=== PATIENT | female | born 2000 | race Caucasian/White ===

== ENCOUNTER 2020-03-29 21:36 | Inpatient (IN) | payer SELFPAY ==
[2020-03-29 21:38] VITALS: BP 113/59; PULSE 71; RESP 14; TEMP 36.8; O2SAT 97; BMI 21.7
[2020-03-29 21:46] VITALS: BP 113/59; PULSE 64; RESP 16; O2SAT 99
[2020-03-29 21:53] VITALS: BP 121/58; PULSE 51; RESP 17; O2SAT 98
--- NOTE | 2020-03-29 21:58 | W.ED.PSYCH ---
HPI - Psych General: Chief Complaint: Psychiatric Symptoms Stated Complaint: SI Time Seen by Provider: 03/29/20 21:38 History of Present Illness: HPI Narrative: 19-year-old female comes in as a direct admit from [facility]. She states that she drank some moonshine last night and took several trazodone. She has been having suicidal thoughts. She denies any recent illness including fevers, shortness of breath, cough, vomiting or diarrhea. MD complaint: suicidal ideation and feels depressed Onset (ago): hour(s) Duration: constant History of same: Yes Relieving factors: none Exacerbating factors: none Context: recent alcohol abuse Associated symptoms: Reports no associated symptoms Review of Systems Const: Denies: fever(s) or chills Eyes: Denies: change in vision Card: Denies: chest pain or palpitations Resp: Denies: dyspnea or wheezing GI: Denies: abdominal pain, nausea or vomiting : Denies: dysuria or hematuria Musc: Denies: joint warmth Skin/Breast: Denies: rash Neuro: Denies: headache(s), dizziness or vertigo Psych: Denies: anxiety [facility] ED Female Reproductive History: Date of last menstrual period: 03/25/20 Physical Exam Const: GENERAL APPEARANCE: well kempt and well developed ORIENTATION/CONSCIOUSNESS: Yes oriented to person, Yes oriented to place and Yes oriented to time HENMT: COMMON NORMALS: external ears normal and Normal external nose present FACE & SINUS: normal facial exam NOSE: Normal external nose present and No nasal discharge present EXTERNAL EAR: Yes external ears normal Eye: COMMON NORMALS: Equal, round and reactive pupils present, EOMs intact bilaterally and conjunctivae normal EYELID: eyelids normal CONJUNCTIVA: Yes conjunctivae normal PUPIL: Yes Equal, round and reactive pupils present Neck/C-Spine: GENERAL: No tracheal deviation Chest: COMMONS NORMALS: normal inspection of the chest CHEST: No tenderness Resp: COMMON NORMALS: clear to auscultation bilaterally EFFORT & INSPECTION: No tachypneic, No respiratory distress, No retractions, No uses accessory muscles and No tracheal deviation AUSCULTATION: clear to auscultation bilaterally, no rhonchi, no wheezes and lung sounds not diminished Cardio: COMMON NORMALS: regular rate and regular rhythm RATE: regular rate RHYTHM: regular rhythm HEART SOUNDS: no murmurs PERIPHERAL PULSES: radial pulses present GI: INSPECTION: No abdominal distension AUSCULTATION: No Hyperactive bowel sounds present and No Hypoactive bowel sounds present PALPATION: No Guarding due to palpation present (GI) and No Rigid due to palpation PERCUSSION: no dullness to percussion and no tympanic to percussion Neuro: SENSORIUM/ORIENTATION: Yes oriented to person, Yes oriented to place and Yes oriented to time Psych: COMMON NORMALS: Normal thought process present and speech normal APPEARANCE: Yes well kempt ACTIVITY/MOTOR BEHAVIOR: Yes appropriate eye contact and Yes psychomotor slowing SPEECH: Yes normal speech MOOD & AFFECT: Yes depressed mood THOUGHT PROCESS: Normal thought process present ATTENTION/CONCENTRATION: Yes attention grossly intact Skin: COMMON NORMALS: no rashes or lesions noted GENERAL SKIN EXAM: no rashes or lesions noted MDM - Psych MDM Narrative: Medical decision making narrative: She is cleared medically for NPU admission. Discharge Plan Discharge Admit Provider: Joao Haley Discharge Date/Time: 03/29/20 22:00 Coding Level of Care Code ED Facility Environmental Technician for Chg Fwd Exam Comprehensive
[2020-03-29 22:31] VITALS: BP 98/52; PULSE 72; RESP 19; TEMP 37; O2SAT 96
[2020-03-29] MEDS: hyDROXYzine 25 mg Capsule 50 MG PO (22:52)
[2020-03-30 06:00] VITALS: BP 97/54; PULSE 52; RESP 16; TEMP 36.8; O2SAT 98
[2020-03-30 14:00] VITALS: BP 89/50; PULSE 75; RESP 18; TEMP 37; O2SAT 99
[2020-03-30] MEDS: sertraline 50 mg Tablet PO (15:37)
[2020-03-30] MEDS: CLONazepam 0.5 mg Tablet PO (15:37)
--- NOTE | 2020-03-30 15:37 | PC.NURSE ---
PRN KLONOPIN KLONOPIN 0.5MG PO PER PATIENT C/O ANXIETY. WILL CONTINUE TO MONITOR FOR MEDICATION EFFECTIVENESS.
--- NOTE | 2020-03-30 16:40 | PC.NURSE ---
PRN KLONOPIN FOLLOW UP MEDICATION EFFECTIVE. NO FURTHER C/O ANXIETY.
[2020-03-30 20:06] VITALS: BP 100/65; PULSE 93; RESP 15; TEMP 36.5; O2SAT 98
[2020-03-30] MEDS: prazosin 1 mg Capsule PO (21:05)
[2020-03-31 06:00] VITALS: BP 97/64; PULSE 76; RESP 15; TEMP 37.1; O2SAT 98
[2020-03-31] MEDS: sertraline 50 mg Tablet PO (08:48)
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
[2020-03-31] MEDS: CLONazepam 0.5 mg Tablet PO (12:07)
--- NOTE | 2020-03-31 12:07 | PC.NURSE ---
PRN KLONOPIN KLONOPIN 0.5 MG PO PER PATIENT C/O ANXIETY. WILL CONTINUE TO MONITOR FOR MEDICATION EFFECTIVENESS.
--- NOTE | 2020-03-31 13:00 | PC.NURSE ---
PRN KLONOPIN FOLLOW UP MEDICATION EFFECTIVE. NO FURTHER C/O ANXIETY.
[2020-03-31 14:21] VITALS: BP 97/64; PULSE 76; RESP 15; TEMP 37.1; O2SAT 98
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
== END 2020-03-31 17:57 | disposition home or self-care (01) | DRG 882 ==
LOC: ER 21:49 → NP 21:50
PROVIDERS: Admitting Provider Psychiatry & Neurology Psychiatry; Visit Provider Psychiatry & Neurology Psychiatry
DX: F43.25 Adjustment disorder with mixed disturbance of emotions and conduct (principal); F33.1 Major depressive disorder, recurrent, moderate; F15.11 Other stimulant abuse, in remission; F43.12 Post-traumatic stress disorder, chronic; Z91.5 Personal history of self-harm; F10.10 Alcohol abuse, uncomplicated
CPT/HCPCS: 12345; 99284